=== PATIENT | male | born 1965 | race Caucasian/White ===

== ENCOUNTER 2020-02-13 17:18 | Inpatient (IN) | payer OTHER, SELFPAY ==
[2020-02-13] VITALS (9 sets, daily range): BP systolic 93–111; BP diastolic 59–68; PULSE 89–105; RESP 13–26; TEMP 37.1–38.9; O2SAT 95–98; BMI 22.5
--- NOTE | 2020-02-13 20:24 | W.ED.GENADLT ---
HPI - General Adult General: Chief complaint: General Medical Stated complaint: Needing Fluids/Came from Cancer Center Time Seen by Provider: 02/13/20 19:56 Source: patient Mode of arrival: ambulatory Limitations: no limitations History of Present Illness: HPI narrative: 54-year-old male who states he has throat cancer and has been receiving radiation chemotherapy at cancer [facility] [place]. He states that after every treatment he was having to receive IV fluids. He states he was discharged a week ago and has been having generalized weakness and called him informed him they wanted him to come to a emergency room to get IV fluids along with had labs checked. Patient denies any fever. Denies any pain. He states he feels like he just needs some IV fluids as he is weak. Associated symptoms: Deny chest pain, dyspnea, nausea, rash or vomiting Review of Systems Const: Denies: fever(s), chills, body aches or change in appetite Eyes: Denies: blurry vision or eye discomfort ENMT: Denies: throat pain or dental pain Card: Denies: chest pain Resp: Denies: dyspnea GI: Denies: abdominal pain, nausea, vomiting or diarrhea : Denies: dysuria Musc: Denies: neck pain or back pain Skin/Breast: Denies: rash Neuro: Reports: weakness in extremities Psych: Denies: depression Gen/Lymph: Denies: easy bruising All/Imm: Denies: urticaria Physical Exam Const: COMMON NORMALS: no acute distress, patient oriented x3 and healthy appearing HENMT: COMMON NORMALS: normocephalic and atraumatic HEAD & SCALP: normocephalic and atraumatic Eye: COMMON NORMALS: Equal, round and reactive pupils present and EOMs intact bilaterally PUPIL: Yes Equal, round and reactive pupils present Neck/C-Spine: COMMON NORMALS: full ROM and supple Chest: COMMONS NORMALS: normal inspection of the chest and normal palpation of entire chest wall Resp: COMMON NORMALS: normal respiratory effort, No retractions, No use of accessory muscles and clear to auscultation bilaterally AUSCULTATION: clear to auscultation bilaterally Cardio: COMMON NORMALS: regular rate, regular rhythm and No murmurs present (Cardio) RATE: regular rate RHYTHM: regular rhythm GI: COMMON NORMALS: Normal to inspection, nondistended, normoactive bowel sounds present, Soft to palpation, non-tender and no masses PALPATION: Yes Soft to palpation Extremity: COMMON NORMALS: normal to inspection and full ROM Neuro: COMMON NORMALS: patient oriented x3, moves all extremities and no focal motor deficits Psych: COMMON NORMALS: mental status grossly normal, Normal thought process present and cooperative THOUGHT PROCESS: Normal thought process present Skin: COMMON NORMALS: no rashes or lesions noted and no wounds GENERAL SKIN EXAM: no rashes or lesions noted Course Vital Signs: Vital signs: Vital Signs Temperature 98.8 F 02/13/20 17:43 Pulse Rate 96 02/13/20 21:00 Respiratory Rate 16 02/13/20 21:00 Blood Pressure 101/62 02/13/20 21:00 Pulse Oximetry 95 02/13/20 21:00 MDM - General Adult MDM Narrative: Medical decision making narrative: Patient presents here with generalized weakness and is found to be anemic. Patient transfused in the ER. His vital signs here been stable. Spoke to hospitalist will admit for observation to trend her hemoglobin. Lab Data: Labs: Lab Results 02/13/20 02/13/20 Range/Units 20:40 20:40 WBC 1.6 L (4.0-10.0) 10^3/ uL RBC 2.28 L (4.1-5.3) 10^6/u L Hgb 6.9 L (11.7-16.6) g/dL Hct 20.1 L* (42.0-52.0) % MCV 88.2 (80-94) fL MCH 30.3 (28.0-34.0) pg MCHC 34.3 (30.0-36.0) g/dL RDW 13.2 (12.1-15.1) % Plt Count 57 L (130-400) 10^3/c mm MPV 8.9 (7.4-10.4) fL Neut % (Auto) 59.0 % Lymph % (Auto) 24.4 % [place] % (Auto) 16.0 % Eos % (Auto) 0.0 % Baso % (Auto) 0.6 % Neut # (Auto) 0.92 L* (1.8-7.7) 10^3/u L Lymph # (Auto) 0.4 L (0.8-4.8) 10^3/u L [place] # (Auto) 0.3 (0.2-0.9) 10^3/u L Eos # (Auto) 0.0 (0.0-0.8) 10^3/u L Baso # (Auto) 0.0 (0.0-0.1) 10^3/u L Nucleated RBC % (a uto) 0 % Nucleated RBCs # 0.0 /100WBC Potassium 4.0 (3.5-5.1) mmol/L Anion Gap 15.0 (5-19) Glucose 107 (65-115) mg/dL Calcium 8.7 (8.5-10.5) mg/dL Phosphorus 3.5 (2.5-4.5) mg/dL Total Bilirubin 0.8 (0.15-1.2) mg/dL AST 15 (0-40) U/L ALT 18 (0-41) U/L Alkaline Phosphata se 73 (40-130) IU/L Lactate Dehydrogen ase 182 (135-225) U/L Total Protein 6.7 (6.6-8.7) g/dL Albumin 3.8 (3.5-5.2) g/dL Globulin 2.9 (1.3-4.6) g/dL Discharge Plan Discharge Patient Disposition: Admitted As Inpatient Clinical Impression: Anemia Qualifiers: Anemia type: unspecified type Qualified Code(s): D64.9 - Anemia, unspecified Condition: Stable Coding Level of Care 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
[2020-02-13 20:50] LABS: Basophils % 0.6 %; Hemoglobin 6.9 g/dL (11.7-16.6); Lymphocytes # 0.4 10^3/uL (0.8-4.8); Lymphocytes % 24.4 %; Mean Corpuscular HGB Conc 34.3 g/dL (30.0-36.0); Mean Corpuscular Hemoglobin 30.3 pg (28.0-34.0); Mean Corpuscular Volume 88.2 fL (80-94); Mean Platelet Volume 8.9 fL (7.4-10.4); Monocytes # 0.3 10^3/uL (0.2-0.9); Nucleated Red Blood Cells % 0 %; Platelet Count 57 10^3/cmm (130-400); Red Blood Count 2.28 10^6/uL (4.1-5.3); Red Cell Distribution Width 13.2 % (12.1-15.1); White Blood Count 1.6 10^3/uL (4.0-10.0)
[2020-02-13 20:53] LABS: Hematocrit 20.1 % (42.0-52.0); Neutrophils # 0.92 10^3/uL (1.8-7.7)
[2020-02-13 21:13] LABS: Alanine Aminotransferase 18 U/L (0-41); Albumin Level 3.8 g/dL (3.5-5.2); Alkaline Phosphatase 73 IU/L (40-130); Aspartate Amino Transferase 15 U/L (0-40); Blood Urea Nitrogen 24 mg/dL (6-20); Calcium 8.7 mg/dL (8.5-10.5); Carbon Dioxide 33 mmol/L (22-29); Chloride 89 mmol/L (98-107); Globulin 2.9 g/dL (1.3-4.6); Glomerular Filtration Rate 42.1 mL/min (90-130); Glucose 107 mg/dL (65-115); Lactate Dehydrogenase 182 U/L (135-225); Magnesium 1.5 mg/dL (1.7-2.3); Osmolality Calculated 281 mOsm/kg (285-295); Phosphorus 3.5 mg/dL (2.5-4.5); Sodium 133 mmol/L (136-145); Total Bilirubin 0.8 mg/dL (0.15-1.2); Total Protein 6.7 g/dL (6.6-8.7)
[2020-02-13] MEDS: sodium chloride 0.9% 1,000 ML 999 ML IV (21:21)
--- NOTE | 2020-02-13 21:59 | P.HP_ITS ---
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 Patient has had 33 cycles of radiotherapy, 3 cycles of chemotherapy, his last cycle was on 02/03. Patient is stating that today he was feeling extremely weak and had 1 presyncopal event in the bathroom, he had no energy to get up on his own, he did not notice any fever, cough, chest pain, abdominal pain, lower extremity pain. He has been noticing streaks of blood on the napkin whenever he sleeps. No profuse bleeding noticed, no black tarry stool. Labs on 02/03 revealed hemoglobin 9. He gets his chemoradiotherapy at cancer Center [facility]. Diagnosis in the ER revealed hemoglobin 6.9, no active bleeding, he was prescribed 2 units of PRBC, record review, before we started blood. 5 fever 102, tachycardic, became septic, he is neutropenic, I have started him on vancomycin and cefepime, put blood transfusion on hold, requested blood culture, urine culture, CT chest Review of Systems Const: Reports: chills, body aches, change in appetite, fatigue and malaise; Denies: fever(s) Eyes: Denies: change in vision ENMT: Reports: throat pain, enlarged tonsils, mouth pain, oral sores and dry mouth Card: Denies: chest pain Resp: Denies: dyspnea GI: Denies: abdominal pain : Denies: flank pain Musc: Denies: neck pain Skin/Breast: Denies: rash Neuro: Denies: headache(s) Psych: Denies: anxiety Endo: Denies: polyuria Gen/Lymph: Denies: easy bruising All/Imm: Denies: urticaria Medications/Allergies Home Medications Medication Instructions Recorded Confirmed Last Taken Type Restoril See Rx Instructions .ROUTE .COMPLEX 02/13/20 02/14/20 02/02/20 History Stomatitis Cocktail See Rx Instructions .ROUTE .COMPLEX 02/13/20 02/14/20 02/13/20 08:00 History escitalopram oxalate [Lexapro] See Rx Instructions .ROUTE .COMPLEX 02/13/20 02/13/20 02/13/20 12:00 History gabapentin See Rx Instructions .ROUTE .COMPLEX 02/13/20 02/13/20 02/13/20 12:00 History guaifenesin See Rx Instructions .ROUTE .COMPLEX 02/13/20 02/13/20 02/13/20 12:00 History hydrocodone-acetaminophen [Weatherly] See Rx Instructions .ROUTE .COMPLEX 02/13/20 02/13/20 02/11/20 12:00 History hydromorphone [Dilaudid] See Rx Instructions .ROUTE .COMPLEX 02/13/20 02/13/20 02/13/20 12:00 History ibuprofen 800 mg PO TID 02/13/20 02/13/20 02/13/20 08:00 History lidocaine HCl [Lidocaine Viscous] See Rx Instructions .ROUTE .COMPLEX 02/13/20 02/13/20 Unknown History nutritional supplements [Osmolite See Rx Instructions .ROUTE .COMPLEX 02/13/20 02/13/20 02/13/20 16:00 History 1.5 Karthik] omeprazole See Rx Instructions .ROUTE .COMPLEX 02/13/20 02/14/20 02/13/20 08:00 History ondansetron HCl [Zofran] See Rx Instructions .ROUTE .COMPLEX 02/13/20 02/14/20 02/13/20 08:00 History polyethylene glycol 3350 [Miralax] 17 g PO DAILY 02/13/20 02/14/20 02/13/20 08:00 History prochlorperazine maleate See Rx Instructions .ROUTE .COMPLEX 02/13/20 02/14/20 02/13/20 08:00 History silver sulfadiazine See Rx Instructions .ROUTE .COMPLEX 02/13/20 02/14/20 02/13/20 08:00 History triamcinolone acetonide See Rx Instructions .ROUTE .COMPLEX 02/13/20 02/13/20 Unknown History Allergies Allergy/AdvReac Type Severity Reaction Status Date / Time No Known Allergies Allergy Verified 02/13/20 22:04 PFSH Acute PFSH: Medical History (Updated 02/14/20 @ 01:07 by David Deng MD) Right tonsillar squamous cell carcinoma Surgical History (Updated 02/14/20 @ 00:59 by David Deng MD) H/O inguinal hernia repair History of knee surgery History of surgery inguinal hernia repair Family History (Updated 02/14/20 @ 00:59 by David Deng MD) Other No pertinent family history Social History (Updated 02/14/20 @ 01:00 by David Deng MD) Quit status (tobacco): has quit using tobacco Former quit date comment: Used to chew tobacco Alcohol intake: never Substance/Drug Use: never Household members: significant other Housing: House 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 Vitals/I&O/Wt Last Vital Signs Temp 98.8 F 02/13/20 17:43 Pulse 96 02/13/20 21:00 Resp 16 02/13/20 21:00 BP 101/62 02/13/20 21:00 Pulse Ox 95 02/13/20 21:00 Weight last 48 hrs Weight 75.296 kg Physical Exam Narrative: EXAM NARRATIVE: Middle-age male currently lying comfortable in his bed No active respiratory distress No active chest pain Appears more than stated age Clinically dehydrated S1, S2 sinus tachycardia Abdomen soft nontender bowel sounds present, PEG tube site without any active drainage, Neurologically nonfocal exam EOMI, PERRLA, I do not appreciate any large masses in oropharynx, however some active bleeding noted from the right tonsillar fossa GCS 15 Appropriate mood and affect Low extremity no edema gangrene ulcer No signs of meningitis Data : 02/13/20 20:40 02/13/20 20:40 A&P Assessment and plan (1) Sepsis: Status: Acute (2) Neutropenia: Status: Acute (3) Right tonsillar squamous cell carcinoma: Status: Acute (4) Anemia: Status: Acute Qualifiers: Anemia type: unspecified type Qualified Code(s): D64.9 - Anemia, unspecified (5) Pancytopenia: Status: Acute (6) AMOS (acute kidney injury): Status: Acute Additional A&P Information Sepsis with moderate neutropenia Patient spiked fever, he is tachycardic, neutropenic I will obtain blood culture, urine culture, will obtain CT chest Start him on vancomycin and cefepime Infectious versus noninfectious source of fever, no signs of meningitis, he is awake alert oriented x3, GCS 15 PEG tube site unremarkable I would request Covid 19 antigen test Acute on chronic normocytic anemia Bone marrow suppression from the chemotherapeutic agent would explain pancytopenia Patient is stating blood from his right tonsillar mass but it is not profuse to the point which is hemoglobin from 9-6 in 2 weeks His last hemoglobin was 9 , 2 weeks ago, This most likely is bone marrow suppression due to chemotherapeutic agent Check iron panel Blood transfusion on hold AMOS No previous creatinine to compare his baseline creatinine Clinically looks dehydrated Monitor urine output, No signs of UTI Hold nephrotoxic agents, especially ibuprofen and gabapentin Full code PEG tube feeding DVT prophylaxis SCDs, avoid anticoagulation in setting of anemia Attestations Medical Necessity Statement*: Anticipating stay in the hospital course more than 2 midnights continue IV antibiotics for sepsis and leukopenia, need blood transfusion as well which is on hold due to febrile episode Time Spent in Patient Care: (>than 50% of time spent in counselling and/or direct pt care on unit) . 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
--- NOTE | 2020-02-13 23:15 | PC.NURSE ---
Was about to go get blood products to start when patient was assigned a room number. Called report to CSU, nurse stated she would start the blood when he got to the floor.
[2020-02-14] VITALS (29 sets, daily range): BP systolic 88–118; BP diastolic 51–75; PULSE 83–120; RESP 15–33; TEMP 36.2–38.8; O2SAT 92–98
--- NOTE | 2020-02-14 00:01 | PC.PHAR ---
Vancomycin is dosed at 1500mg IVPB every 24 hours to produce a predicted trough level of 13.53 (population based pharmacokinetic analysis). A trough level has been ordered from the lab to be obtained before the fourth dose to confirm and adjust if needed.
--- NOTE | 2020-02-14 00:53 | PC.NURSE ---
Addendum entered by Angelica Quintana RN 02/14/20 00:57: Ordered to wait and given Dexamethasone and Benadryl that is ordered right before transfusion. Original Note: Verified with Dr. Deng not to start blood until fever is resolved.
--- NOTE | 2020-02-14 01:13 | CTR_ITS ---
PROCEDURE INFORMATION: Exam: CT Chest Without Contrast Exam date and time: 02/14/2020 2:12 AM Age: 54 years old Clinical indication: Condition or disease; Other: Sepsis neutropenia; Primary cancer: RT tonsillar squamous cell carcinoma; Prior surgery; Surgery type: Peg tube TECHNIQUE: Imaging protocol: Computed tomography of the chest without contrast. Radiation optimization: All CT scans at this facility use at least one of these dose optimization techniques: automated exposure control; mA and/or kV adjustment per patient size (includes targeted exams where dose is matched to clinical indication); or iterative reconstruction. COMPARISON: No relevant prior studies available. RADIATION DOSE METRICS: Total DLP (mGy-cm): 1280.68 FINDINGS: Lungs: Unremarkable. No consolidation. No masses. Pleural space: Unremarkable. No pneumothorax. No pleural effusion. Heart: Unremarkable. No cardiomegaly. No pericardial effusion. Aorta: Unremarkable. No aortic aneurysm. Lymph nodes: Unremarkable. No enlarged lymph nodes. Bones/joints: Unremarkable. No acute fracture. Soft tissues: Unremarkable. IMPRESSION: No acute findings. PROCEDURE INFORMATION: Exam: CT Abdomen And Pelvis Without Contrast Exam date and time: 02/14/2020 2:12 AM Age: 54 years old Clinical indication: Condition or disease; Other: Sepsis neutropenia; Primary cancer: RT tonsillar squamous cell carcinoma; Prior surgery; Surgery type: Peg tube TECHNIQUE: Imaging protocol: Computed tomography of the abdomen and pelvis without contrast. Radiation optimization: All CT scans at this facility use at least one of these dose optimization techniques: automated exposure control; mA and/or kV adjustment per patient size (includes targeted exams where dose is matched to clinical indication); or iterative reconstruction. COMPARISON: No relevant prior studies available. RADIATION DOSE METRICS: Total DLP (mGy-cm): 1280.68 FINDINGS: Tubes, catheters and devices: A percutaneous gastrostomy tube is present with the balloon in the mid stomach. Liver: Normal. No mass. Gallbladder and bile ducts: Normal. No calcified stones. No ductal dilation. Pancreas: Normal. No ductal dilation. Spleen: Normal. No splenomegaly. Adrenal glands: Normal. No mass. Kidneys and ureters: Tiny 7 mm cyst is seen on the posterior aspect of the left kidney compatible with a simple cyst. Stomach and bowel: Unremarkable. No obstruction. No mucosal thickening. Appendix: The appendix is visualized and is normal in configuration. Intraperitoneal space: Unremarkable. No free air. No significant fluid collection. Vasculature: Unremarkable. No abdominal aortic aneurysm. Lymph nodes: Unremarkable. No enlarged lymph nodes. Urinary bladder: Unremarkable as visualized. Reproductive: Unremarkable as visualized. Bones/joints: Unremarkable. No acute fracture. Soft tissues: Unremarkable. CT/CT chest abd pel wo con IMPRESSION: 1. Percutaneous gastrostomy tube with balloon in mid stomach 2. Simple 7 mm left renal cyst. No further workup needed. COMMENTS: Consistent with the [place]'s Incidental Findings Committee white paper (J Am Francesca Radiol 2018): Any incidental renal lesion less than 1 cm or classified as too small to characterize, or any incidental cystic renal lesion characterized as simple-appearing, is likely benign. No follow-up imaging is recommended for these lesions per consensus recommendations based on imaging criteria. Radiation Dose CTDIVOL = (mGy): DLP = 1280.68~1280.68 (mGy-cm)
[2020-02-14 01:21] LABS: Lactic Sepsis W/Reflex 0.8 mmol/L (0.5-2.2)
[2020-02-14 01:31] LABS: SARS Covid-2 Antigen Negative (Negative)
[2020-02-14] MEDS: cefepime 1,000 MG in sodium chloride 0.9% (plus) 50 ML 100 MG IV ×3 (01:47→23:53)
[2020-02-14] MEDS: ondansetron 2 mg/ML SDV 2 mL 4 MG IVP ×2 (02:35→17:20)
[2020-02-14 03:01] LABS: Iron 76 ug/dL (59-158); Percent Saturation 42.4 % (20-50); Total Iron Binding Capacity 179 mcg/dl; Unsaturated Iron Binding 103 ug/dL (112-347)
[2020-02-14 03:07] LABS: Procalcitonin 0.27 ng/mL (0-0.5)
[2020-02-14 03:15] LABS: Iron 72 ug/dL (59-158); Vitamin B12 719 pg/mL (232-1245)
[2020-02-14 03:30] LABS: Ferritin 1482 ng/mL (30-400)
--- NOTE | 2020-02-14 03:55 | PC.NURSE ---
NURSING NOTE: ADMISSION: PT ARRIVED TO UNIT AT APPROXIMATELY 2345 THIS SHIFT. ALERT AND ORIENTED X4, MOVES ALL EXTREMITIES AND FOLLOWS ALL COMMANDS. PT'S TEMP ON ARRIVAL TO THE FLOOR = 102.1. PLACED CALL TO DR. BUCK AND RECEIVED ORDERS TO HOLD BLOOD TRANSFUSION UNTIL TEMP RESOLVED; TYLENOL PRN TEMP AND ORDERS FOR PRETRANSFUSION MEDICATIONS. ALL VS AND ASSESSMENTS ORDERED. AT APPROXIMATELY 0200, PT C/O NAUSEA AND VOMITNING/HAD EMESIS X3. ZOFRAN GIVEN ORDERED. NO DISTRESS NOTED AT THIS TIME. WILL CONTINUE TO MONITOR.
--- NOTE | 2020-02-14 05:36 | PC.NURSE ---
NURSING NOTE: SHIFT SUMMARY: PT TEMP AT THIS TIME 98.2. PLACED CALL TO DR. BUCK FOR OK TO TRANSFUSE BLOOD. RECEIVED ORDER TO GO AHEAD AND TRANSFUSE AT THIS TIME. PT RESTING QUIETLY. NO MORE NAUSEA AND VOMITING. ALL VS AND ASSESSMENTS CHARTED. NO DISTRESS NOTED.
[2020-02-14 06:13] LABS: Basophils % 0.9 %; Lymphocytes # 0.3 10^3/uL (0.8-4.8); Mean Corpuscular HGB Conc 34.1 g/dL (30.0-36.0); Mean Corpuscular Hemoglobin 30.2 pg (28.0-34.0); Mean Corpuscular Volume 88.5 fL (80-94); Monocytes # 0.2 10^3/uL (0.2-0.9); Neutrophils % 58.4 %; Nucleated Red Blood Cells % 0 %; Platelet Count 59 10^3/cmm (130-400); Red Blood Count 1.92 10^6/uL (4.1-5.3); Red Cell Distribution Width 13.2 % (12.1-15.1); White Blood Count 1.1 10^3/uL (4.0-10.0)
[2020-02-14 09:47] LABS: Hemoglobin 5.8 g/dL (11.7-16.6); Neutrophils # 0.66 10^3/uL (1.8-7.7)
[2020-02-14 09:48] LABS: Slide Review Slide Review Perform
--- NOTE | 2020-02-14 15:01 | P.PN_ITS ---
Subjective Subjective: Interval history: History and physical reviewed. Patient reports he feels a little bit better than on admission. He denies any cough, vomiting, diarrhea. Medications: Reviewed: Yes Vitals/I&O/Wt Last Vital Signs Temp 100.1 F H 02/14/20 12:00 Pulse 96 02/14/20 12:00 Resp 16 02/14/20 12:00 BP 114/65 02/14/20 12:00 Pulse Ox 96 02/14/20 12:00 02/14/20 02/14/20 02/14/20 06:59 14:59 22:59 Intake Total 50 / 1050 Output Total 400 / 400 280 / 280 Balance -350 / 650 -280 / -280 Weight last 48 hrs Weight 75.296 kg Physical Exam Narrative: EXAM NARRATIVE: General exams no apparent distress Cardiovascular regular rate and rhythm, no murmur Lungs clear no wheezing or crackles Abdomen is soft nontender with positive bowel sounds Extremities no cyanosis clubbing or edema Skin no rash Data : 02/14/20 05:55 02/13/20 20:40 Micro: Microbiology 02/13/20 05:55 Blood Culture - Preliminary Blood SPECIMEN COLLECTED 02/13/20 05:55 Blood Culture - Preliminary Blood SPECIMEN COLLECTED A&P Assessment and plan (1) Neutropenia: ANC 660 this morning. White blood cell count 1.1. Closely monitor counts Status: Acute (2) Sepsis: IV antibiotics consisting of cefepime and vancomycin. Continued hydration Chest abdomen and pelvis CT demonstrated no infiltrate in the lungs. Rapid Covid negative Status: Acute (3) Pancytopenia: Most recent chemotherapy and radiation 3 weeks ago 1 unit packed red blood cells transfused for hemoglobin of 5.8. Repeat CBC tomorrow. Status: Acute (4) AMOS (acute kidney injury): Recheck creatinine in the morning. 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
[2020-02-14] MEDS: famotidine 20 mg Tablet PEG-TUBE (16:42)
[2020-02-14] MEDS: HYDROcodone-acetaminophen 7.5-325 mg Tablet 1 TAB PEG-TUBE ×2 (17:26→21:35)
[2020-02-14] MEDS: gabapentin 300 mg Capsule 600 MG PO (21:35)
--- NOTE | 2020-02-14 21:58 | PC.NURSE ---
Patient stated he took 10mg of lexapro not 1mg. On his home medication list it is listed as 10mg PEG tube. I offered to call the doctor and fix this patient said no and just to have it fixed tomorrow. Medication not given as requested.
[2020-02-15 04:00] VITALS: BP 125/68; PULSE 110; RESP 18; TEMP 38.2; O2SAT 94
[2020-02-15] MEDS: acetaminophen 325 mg Tablet PO (04:24)
[2020-02-15] MEDS: gabapentin 300 mg Capsule PEG-TUBE ×2 (04:24→12:20)
--- NOTE | 2020-02-15 04:39 | PC.NURSE ---
Patient requested all his medications be given together with his Tylenol.
[2020-02-15 04:55] LABS: Basophils % 2.4 %; Hematocrit 22.6 % (42.0-52.0); Hemoglobin 7.6 g/dL (11.7-16.6); Lymphocytes # 0.2 10^3/uL (0.8-4.8); Mean Corpuscular HGB Conc 33.6 g/dL (30.0-36.0); Mean Corpuscular Hemoglobin 28.7 pg (28.0-34.0); Mean Corpuscular Volume 85.3 fL (80-94); Mean Platelet Volume 8.7 fL (7.4-10.4); Monocytes # 0.2 10^3/uL (0.2-0.9); Monocytes % 19.5 %; Neutrophils % 56.1 %; Nucleated Red Blood Cells % 0 %; Platelet Count 60 10^3/cmm (130-400); Red Blood Count 2.65 10^6/uL (4.1-5.3); Red Cell Distribution Width 14.9 % (12.1-15.1)
[2020-02-15 05:15] LABS: Neutrophils # 0.46 10^3/uL (1.8-7.7); White Blood Count 0.8 10^3/uL (4.0-10.0)
[2020-02-15 05:51] LABS: Alanine Aminotransferase 19 U/L (0-41); Albumin Level 3.8 g/dL (3.5-5.2); Alkaline Phosphatase 76 IU/L (40-130); Anion Gap 15.2 (5-19); Aspartate Amino Transferase 16 U/L (0-40); Blood Urea Nitrogen 24 mg/dL (6-20); Calcium 8.7 mg/dL (8.5-10.5); Carbon Dioxide 31 mmol/L (22-29); Chloride 94 mmol/L (98-107); Globulin 2.8 g/dL (1.3-4.6); Glomerular Filtration Rate 69.5 mL/min (90-130); Glucose 125 mg/dL (65-115); Magnesium 1.6 mg/dL (1.7-2.3); Osmolality Calculated 290 mOsm/kg (285-295); Potassium 3.2 mmol/L (3.5-5.1); Sodium 137 mmol/L (136-145); Total Protein 6.6 g/dL (6.6-8.7)
--- NOTE | 2020-02-15 05:54 | PC.NURSE ---
Called Dr. Deng with critical labs and updated him that patient was not on any precautions. awaiting orders at this time.
[2020-02-15 08:00] VITALS: BP 125/68; PULSE 82; RESP 27
--- NOTE | 2020-02-15 09:12 | P.PN_ITS ---
Subjective Subjective: Interval history: Patient finally was able to sleep throughout the night. He was difficult to arouse this morning and appeared somewhat confused initially but quickly got oriented. 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 Reports that he is not but does have girlfriend Maylin. Reports that he has 3 daughters and they are from [place]. Reports that he completed his radiation and 3 rounds of chemotherapy. Reports that after each round of chemotherapy he would get sick and be hospitalized in [facility]. Reports that this time he decided to come home and not wait until his post chemo sickness happens. This morning patient denies any shortness of breath or chest pain. Denies any abdominal pain. Denies headache. Reports that he has chronic large amount of dark brownish, thick phlegm production especially in the morning ever since he started having radiation therapy to his neck. Reports that his neck feels hot but otherwise he denies any pain and his temperature is 100.7 this morning. He is not sure when was his last bowel movement. Reports that he frequently has trouble initiating urination but otherwise denies any burning on urination. White blood cell count continues to decline. Platelets appear stable. Hemoglobin responded to blood transfusion. I also would like to mention that when patient's RN Tova walked into the room he immediately recalled her name. Medications: Reviewed: Yes Vitals/I&O/Wt Last Vital Signs Temp 100.7 F H 02/15/20 04:00 Pulse 110 H 02/15/20 04:00 Resp 18 02/15/20 04:00 BP 125/68 02/15/20 04:00 Pulse Ox 94 02/15/20 04:00 02/14/20 02/15/20 02/15/20 22:59 06:59 14:59 Intake Total 1720 / 2245 840 / 3085 Output Total 440 / 1120 675 / 1795 Balance 1280 / 1125 165 / 1290 Weight last 48 hrs Weight 75.296 kg Physical Exam Const: COMMON NORMALS: no acute distress and patient oriented x3 Resp: COMMON NORMALS: normal respiratory effort and clear to auscultation bilaterally AUSCULTATION: clear to auscultation bilaterally Cardio: COMMON NORMALS: regular rate, regular rhythm and S2 normal heart sound present RATE: regular rate RHYTHM: regular rhythm HEART SOUNDS: S2 normal heart sound present OTHER: No lower extremity edema GI: COMMON NORMALS: Normal to inspection, nondistended, normoactive bowel sounds present, Soft to palpation and non-tender PALPATION: Yes Soft to palpation OTHER: PEG tube insertion site is clean Neuro: COMMON NORMALS: patient oriented x3 and no focal motor deficits Skin: OTHER: Mostly right side of the neck has erythema and post radiation changes Data : 02/15/20 04:00 02/15/20 04:00 Micro: Microbiology 02/13/20 05:55 Blood Culture - Preliminary Blood NEGATIVE TO DATE 02/13/20 05:55 Blood Culture - Preliminary Blood NEGATIVE TO DATE A&P Assessment and plan (1) Neutropenia: With neutropenic fever. Post chemotherapy last week Monday. Status: Acute (2) Sepsis: IV antibiotics consisting of cefepime and vancomycin. Continued hydration Chest abdomen and pelvis CT demonstrated no infiltrate in the lungs. Rapid Covid negative Status: Acute (3) Pancytopenia: Most recent chemotherapy and radiation patient reports being last week Monday 1 unit packed red blood cells transfused for hemoglobin of 5.8. Repeat CBC tomorrow. Status: Acute (4) AMOS (acute kidney injury): Resolved. 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 Status: Acute Additional A&P Information Sepsis with neutropenic fever. Acute on chronic normocytic anemia Bone marrow suppression from the chemotherapeutic agent would explain pancytopenia Patient is stating blood from his right tonsillar mass but it is not profuse to the point which is hemoglobin from 9-6 in 2 weeks AMOS, prerenal. Postrenal component cannot be ruled out at this point Hypomagnesemia, present on admission Hypokalemia. Full code PEG tube feeding DVT prophylaxis SCDs, avoid anticoagulation in setting of anemia PLAN: Obtain urine for analysis and culture. Will bladder scan to to check for possible obstruction. Continue current antibiotics and monitor. Awaiting culture results. Request physical therapy. 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
[2020-02-15] MEDS: potassium chloride ER 10 mEq Tablet 40 MEQ PO (09:43)
[2020-02-15] MEDS: famotidine 20 mg Tablet PEG-TUBE ×2 (09:43→18:53)
[2020-02-15] MEDS: magnesium sulfate premix 2 GM/50 ML PIGGYBACK IV (09:44)
[2020-02-15 09:55] VITALS: BP 99/68; PULSE 75; RESP 18
--- NOTE | 2020-02-15 11:30 | PC.NURSE ---
Bladder scan showed 589 fluid in bladder. Patient voided 560 within 30 minutes of scanning
[2020-02-15] MEDS: cefepime 1,000 MG in sodium chloride 0.9% (plus) 50 ML 100 MG IV (12:20)
[2020-02-15 13:00] VITALS: PULSE 85; RESP 20
--- NOTE | 2020-02-15 13:39 | PC.NURSE ---
Report had off to CINDY Bond.
[2020-02-15] MEDS: HYDROcodone-acetaminophen 7.5-325 mg Tablet 1 TAB PEG-TUBE ×3 (13:42→23:03)
[2020-02-15 15:39] LABS: Add Urine Microscopic? NO
[2020-02-15 16:21] LABS: Bilirubin Urine Neg (Negative); Blood Urine Neg (Negative); Glucose Urine UA Norm (Normal); Ketones Urine Negative (Negative); Leukocyte Esterase Urine Negative (Negative); Nitrate Urine Negative (Negative); Protein Urine Neg (Negative); Specific Gravity, Urine 1.005 (1.005-1.030); Urine Appearance Clear (CLEAR); Urine Color Yellow (Yellow); Urobilinogen Urine 4 mg/dL (Negative); pH Urine 7 (5-7)
[2020-02-15 17:00] VITALS: BP 104/64; PULSE 93; RESP 19; TEMP 37.7; O2SAT 96
[2020-02-15 20:56] VITALS: BP 106/62; PULSE 88; RESP 19; TEMP 36.9; O2SAT 96
[2020-02-15] MEDS: gabapentin 300 mg Capsule 600 MG PO (20:59)
[2020-02-16] VITALS (14 sets, daily range): BP systolic 91–138; BP diastolic 59–88; PULSE 79–106; RESP 11–20; TEMP 36.5–37.3; O2SAT 93–98
[2020-02-16] MEDS: cefepime 1,000 MG in sodium chloride 0.9% (plus) 50 ML 100 MG IV ×3 (00:10→23:54)
[2020-02-16 01:15] LABS: Vancomycin Trough 11.2 ug/mL (10-15)
[2020-02-16] MEDS: gabapentin 300 mg Capsule PEG-TUBE ×2 (05:30→11:11)
[2020-02-16] MEDS: HYDROcodone-acetaminophen 7.5-325 mg Tablet 1 TAB PEG-TUBE ×3 (05:34→18:23)
--- NOTE | 2020-02-16 08:08 | PM.PN ---
Subjective Subjective: Interval history: Patient reports feeling better this morning. Denies shortness of breath or chest pain. Denies abdominal pain. His tube feeds are at goal. Reports that he is still feels dry. Awaiting morning labs. Fever appears to be improving and T-max since yesterday was 99.9. Continues to have phlegm production. Medications: Reviewed: Yes Vitals/I&O/Wt Last Vital Signs Temp 98.6 F 02/16/20 00:05 Pulse 84 02/16/20 00:05 Resp 14 02/16/20 00:05 BP 105/63 02/16/20 00:05 Pulse Ox 94 02/16/20 00:05 02/15/20 02/16/20 02/16/20 22:59 06:59 14:59 Intake Total 760 / 940 140 / 1080 Output Total 220 / 800 150 / 950 Balance 540 / 140 -10 / 130 Physical Exam Const: COMMON NORMALS: no acute distress and patient oriented x3 Resp: COMMON NORMALS: normal respiratory effort and clear to auscultation bilaterally AUSCULTATION: clear to auscultation bilaterally Cardio: COMMON NORMALS: regular rate, regular rhythm and S2 normal heart sound present RATE: regular rate RHYTHM: regular rhythm HEART SOUNDS: S2 normal heart sound present OTHER: No lower extremity edema GI: COMMON NORMALS: Normal to inspection, nondistended, normoactive bowel sounds present, Soft to palpation and non-tender PALPATION: Yes Soft to palpation OTHER: PEG tube insertion site is clean Neuro: COMMON NORMALS: patient oriented x3 and no focal motor deficits Skin: OTHER: Mostly right side of the neck has erythema and post radiation changes Data : 02/15/20 04:00 02/15/20 04:00 Micro: Microbiology 02/15/20 13:30 Gram Stain - Final Sputum - Expectorated Sputum 02/13/20 05:45 Urine Culture - Preliminary Urine,Clean Catch 02/13/20 05:55 Blood Culture - Preliminary Blood NEGATIVE TO DATE 02/13/20 05:55 Blood Culture - Preliminary Blood NEGATIVE TO DATE A&P Assessment and plan (1) Neutropenia: With neutropenic fever. Post chemotherapy last week Monday. Status: Acute (2) Sepsis: IV antibiotics consisting of cefepime and vancomycin. Continued hydration Chest abdomen and pelvis CT demonstrated no infiltrate in the lungs. Rapid Covid negative Status: Acute (3) Pancytopenia: Most recent chemotherapy and radiation patient reports being last week Karan 1 unit packed red blood cells transfused for hemoglobin of 5.8. Repeat CBC tomorrow. Status: Acute (4) AMOS (acute kidney injury): Resolved. 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 Status: Acute Additional A&P Information Sepsis with neutropenic fever. Acute on chronic normocytic anemia Bone marrow suppression from the chemotherapeutic agent would explain pancytopenia Patient is stating blood from his right tonsillar mass but it is not profuse to the point which is hemoglobin from 9-6 in 2 weeks AMOS, prerenal. Postrenal component cannot be ruled out at this point Hypomagnesemia, present on admission Hypokalemia. Full code PEG tube feeding DVT prophylaxis SCDs, avoid anticoagulation in setting of anemia PLAN: Awaiting for morning labs. Will start patient on LR at 75 mill per hour and continue tube feeds. Continue current antibiotics. Clinically patient appears to be improving. Attestations Medical Necessity Statement*: Patient with neutropenic fever requires close inpatient monitoring and treatment until deemed safe for discharge. Time Spent in Patient Care: 16 - 35 minutes Coding Level of Care Code Acute Manager Of [employer] for g Fwd Diagnoses Neutropenia D70.9 Sepsis A41.9 Pancytopenia D61.818 AMOS (acute kidney injury) N17.9 Right tonsillar squamous cell carcinoma C09.9
[2020-02-16] MEDS: lactated ringers 1,000 ML 75 ML IV (09:24)
[2020-02-16] MEDS: famotidine 20 mg Tablet PEG-TUBE ×2 (09:24→18:22)
[2020-02-16 09:49] LABS: Basophils % 0.7 %; Eosinophils % 0.7 %; Hemoglobin 6.6 g/dL (11.7-16.6); Lymphocytes # 0.5 10^3/uL (0.8-4.8); Lymphocytes % 34.5 %; Mean Corpuscular HGB Conc 34.2 g/dL (30.0-36.0); Mean Corpuscular Hemoglobin 29.5 pg (28.0-34.0); Mean Corpuscular Volume 86.2 fL (80-94); Mean Platelet Volume 8.4 fL (7.4-10.4); Monocytes # 0.4 10^3/uL (0.2-0.9); Monocytes % 28.2 %; Nucleated Red Blood Cells % 0 %; Red Blood Count 2.24 10^6/uL (4.1-5.3); Red Cell Distribution Width 14.6 % (12.1-15.1); White Blood Count 1.4 10^3/uL (4.0-10.0)
[2020-02-16 10:09] LABS: Alanine Aminotransferase 20 U/L (0-41); Albumin Level 3.3 g/dL (3.5-5.2); Alkaline Phosphatase 69 IU/L (40-130); Anion Gap 12.6 (5-19); Aspartate Amino Transferase 13 U/L (0-40); Blood Urea Nitrogen 19 mg/dL (6-20); Calcium 8.4 mg/dL (8.5-10.5); Carbon Dioxide 30 mmol/L (22-29); Chloride 93 mmol/L (98-107); Globulin 2.6 g/dL (1.3-4.6); Glomerular Filtration Rate 69.5 mL/min (90-130); Glucose 100 mg/dL (65-115); Osmolality Calculated 276 mOsm/kg (285-295); Potassium 3.6 mmol/L (3.5-5.1); Sodium 132 mmol/L (136-145); Total Bilirubin 0.8 mg/dL (0.15-1.2); Total Protein 5.9 g/dL (6.6-8.7)
[2020-02-16 10:15] LABS: Neutrophils % 35.9 %; Slide Review Slide Review Perform
[2020-02-16 10:16] LABS: Platelet Count 62 10^3/cmm (130-400)
[2020-02-16 10:17] LABS: Hematocrit 19.3 % (42.0-52.0); Neutrophils # 0.49 10^3/uL (1.8-7.7)
[2020-02-16] MEDS: sodium chloride 0.9% (100 ml) 100 ML (11:19)
--- NOTE | 2020-02-16 12:54 | PC.NURSE ---
BLOOD BAND WRISTBAND NOT ABLE TO SCAN, VERIFIED WITH SECOND NURSE AND LAB THAT OVERRIDE WAS ACCEPTABLE DUE TO COMPUTER GLITCH ON LAB SIDE OF A SPACE BEING ENTERED IN FOR BLOOD BAND WRISTBAND. 2ND NURSE VERIFIED. (WASFL). BLOOD THEN STARTED.
--- NOTE | 2020-02-16 19:18 | PC.NURSE ---
Received report from CINDY Matute. Patient resting in bed watching tv. Patient reports feeling much better this evening than when he arrived to the hospital. Patient has peg tube with own supplies for feeding and medication administration. Patient denies pain or needs at this time. No distress observed.
[2020-02-16] MEDS: gabapentin 300 mg Capsule 600 MG PO (21:03)
[2020-02-17] VITALS (7 sets, daily range): BP systolic 87–112; BP diastolic 56–71; PULSE 85–103; RESP 12–16; TEMP 36.6–37.9; O2SAT 94–97
[2020-02-17 04:20] LABS: Basophils % 0.8 %; Hematocrit 24.3 % (42.0-52.0); Hemoglobin 8.2 g/dL (11.7-16.6); Lymphocytes # 0.4 10^3/uL (0.8-4.8); Lymphocytes % 34.4 %; Mean Corpuscular HGB Conc 33.7 g/dL (30.0-36.0); Mean Corpuscular Hemoglobin 29.6 pg (28.0-34.0); Mean Corpuscular Volume 87.7 fL (80-94); Mean Platelet Volume 8.8 fL (7.4-10.4); Monocytes # 0.3 10^3/uL (0.2-0.9); Monocytes % 24.2 %; Neutrophils % 40.6 %; Nucleated Red Blood Cells % 0 %; Platelet Count 66 10^3/cmm (130-400); Red Blood Count 2.77 10^6/uL (4.1-5.3); Red Cell Distribution Width 14.2 % (12.1-15.1); White Blood Count 1.3 10^3/uL (4.0-10.0)
[2020-02-17 04:48] LABS: Alanine Aminotransferase 23 U/L (0-41); Albumin Level 3.5 g/dL (3.5-5.2); Alkaline Phosphatase 78 IU/L (40-130); Anion Gap 12.4 (5-19); Aspartate Amino Transferase 18 U/L (0-40); Blood Urea Nitrogen 17 mg/dL (6-20); Calcium 8.3 mg/dL (8.5-10.5); Carbon Dioxide 32 mmol/L (22-29); Chloride 91 mmol/L (98-107); Globulin 2.5 g/dL (1.3-4.6); Glomerular Filtration Rate 69.5 mL/min (90-130); Glucose 147 mg/dL (65-115); Magnesium 1.5 mg/dL (1.7-2.3); Osmolality Calculated 278 mOsm/kg (285-295); Potassium 3.4 mmol/L (3.5-5.1); Sodium 132 mmol/L (136-145); Total Bilirubin 0.8 mg/dL (0.15-1.2)
[2020-02-17 04:57] LABS: Neutrophils # 0.52 10^3/uL (1.8-7.7)
[2020-02-17] MEDS: gabapentin 300 mg Capsule PEG-TUBE ×2 (05:26→12:37)
[2020-02-17] MEDS: HYDROcodone-acetaminophen 7.5-325 mg Tablet 1 TAB PEG-TUBE ×5 (05:43→23:03)
[2020-02-17] MEDS: magnesium sulfate premix 2 GM/50 ML PIGGYBACK IV (08:01)
[2020-02-17] MEDS: lactated ringers 1,000 ML 75 ML IV ×2 (09:42→23:08)
[2020-02-17] MEDS: famotidine 20 mg Tablet PEG-TUBE ×2 (09:42→17:02)
[2020-02-17] MEDS: cefepime 1,000 MG in sodium chloride 0.9% (plus) 50 ML 100 MG IV ×2 (12:36→23:04)
--- NOTE | 2020-02-17 13:53 | P.PN_ITS ---
Subjective Subjective: Interval history: Patient reports further improving. Denies shortness of breath or chest pain. Reports that his saliva is quite thick and he continues to have some discomfort in his neck. Patient reports that Mucinex previously worked well. Vitals overall improved and patient currently afebrile for the last 2 days. Neutropenia and thrombocytopenia appears to be further improving. Hemoglobin responded well to 1 unit of transfusion and is at 8.2. Medications: Reviewed: Yes Vitals/I&O/Wt Last Vital Signs Temp 98.2 F 02/17/20 10:40 Pulse 85 02/17/20 10:40 Resp 16 02/17/20 10:40 BP 105/71 02/17/20 10:40 Pulse Ox 95 02/17/20 10:40 02/16/20 02/17/20 02/17/20 22:59 06:59 14:59 Intake Total 1410 / 1542.517 300 / 3634.555 4807.5 / 1037.5 Output Total 875 / 1150 825 / 1975 300 / 300 Balance 535 / 392.517 -525 / -132.483 737.5 / 737.5 Physical Exam Const: COMMON NORMALS: no acute distress and patient oriented x3 Resp: COMMON NORMALS: normal respiratory effort and clear to auscultation bilaterally AUSCULTATION: clear to auscultation bilaterally Cardio: COMMON NORMALS: regular rate, regular rhythm and S2 normal heart sound present RATE: regular rate RHYTHM: regular rhythm HEART SOUNDS: S2 normal heart sound present OTHER: No lower extremity edema GI: COMMON NORMALS: Normal to inspection, nondistended, normoactive bowel sounds present, Soft to palpation and non-tender PALPATION: Yes Soft to palpation OTHER: PEG tube insertion site is clean Neuro: COMMON NORMALS: patient oriented x3 and no focal motor deficits Skin: OTHER: Mostly right side of the neck has erythema and post radiation changes Data : 02/17/20 03:08 02/17/20 03:08 Micro: Microbiology 02/15/20 13:30 Gram Stain - Final Sputum - Expectorated Sputum Sputum Culture - Preliminary A&P Assessment and plan (1) Neutropenia: With neutropenic fever. Post chemotherapy last week Monday. Status: Acute (2) Sepsis: IV antibiotics consisting of cefepime and vancomycin. Continued hydration Chest abdomen and pelvis CT demonstrated no infiltrate in the lungs. Rapid Covid negative Status: Acute (3) Pancytopenia: Most recent chemotherapy and radiation patient reports being last week Karan 1 unit packed red blood cells transfused for hemoglobin of 5.8. Repeat CBC tomorrow. Status: Acute (4) AMOS (acute kidney injury): Resolved. 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 Status: Acute Additional A&P Information Sepsis with neutropenic fever. Acute on chronic normocytic anemia Bone marrow suppression from the chemotherapeutic agent would explain pancytopenia Patient is stating blood from his right tonsillar mass but it is not profuse to the point which is hemoglobin from 9-6 in 2 weeks AMOS, prerenal. Postrenal component cannot be ruled out at this point Hypomagnesemia, present on admission Hypokalemia. Full code PEG tube feeding DVT prophylaxis SCDs, avoid anticoagulation in setting of anemia PLAN: We will change LR to 50 mL/h and continue tube feeds. Replete potassium. Add Mucinex. Continue IV antibiotics for now as patient is still neutropenic Attestations Medical Necessity Statement*: Patient with neutropenic fever requires close inpatient monitoring and treatment until deemed safe for discharge. 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
[2020-02-17] MEDS: potassium chloride oral liq 20 mEq/15 mL UDC 40 MEQ PO (14:23)
[2020-02-17] MEDS: guaiFENesin 600 mg Tablet PO (17:02)
--- NOTE | 2020-02-17 19:01 | PC.NURSE ---
Received report from CINDY Matute. Patient resting in bed watching tv. C/O pain 09/10 to throat. Patient given medication as ordered for pain. Patient express thanks. Assessment completed as documented. Patient denies needs or other discomforts at this time. No distress observed.
[2020-02-17] MEDS: escitalopram 10 mg Tablet PEG-TUBE (20:57)
[2020-02-17] MEDS: gabapentin 300 mg Capsule 600 MG PO (20:57)
[2020-02-18] VITALS (7 sets, daily range): BP systolic 106–119; BP diastolic 66–74; PULSE 78–97; RESP 12–19; TEMP 36.6–37.7; O2SAT 93–96
[2020-02-18] MEDS: HYDROcodone-acetaminophen 7.5-325 mg Tablet 1 TAB PEG-TUBE ×6 (03:10→23:52)
[2020-02-18 05:39] LABS: Basophils % 1.2 %; Eosinophils % 0.6 %; Hematocrit 23.1 % (42.0-52.0); Hemoglobin 7.9 g/dL (11.7-16.6); Lymphocytes # 0.4 10^3/uL (0.8-4.8); Lymphocytes % 22.2 %; Mean Corpuscular HGB Conc 34.2 g/dL (30.0-36.0); Mean Corpuscular Hemoglobin 30.2 pg (28.0-34.0); Mean Corpuscular Volume 88.2 fL (80-94); Monocytes # 0.4 10^3/uL (0.2-0.9); Neutrophils % 53.8 %; Nucleated Red Blood Cells % 0 %; Platelet Count 56 10^3/cmm (130-400); Red Blood Count 2.62 10^6/uL (4.1-5.3); Red Cell Distribution Width 14.2 % (12.1-15.1); White Blood Count 1.7 10^3/uL (4.0-10.0)
[2020-02-18] MEDS: gabapentin 300 mg Capsule PEG-TUBE ×2 (05:43→11:35)
[2020-02-18 06:08] LABS: Alanine Aminotransferase 22 U/L (0-41); Albumin Level 3.2 g/dL (3.5-5.2); Alkaline Phosphatase 70 IU/L (40-130); Anion Gap 12.8 (5-19); Aspartate Amino Transferase 13 U/L (0-40); Blood Urea Nitrogen 14 mg/dL (6-20); Calcium 8.2 mg/dL (8.5-10.5); Carbon Dioxide 31 mmol/L (22-29); Chloride 93 mmol/L (98-107); Globulin 2.6 g/dL (1.3-4.6); Glomerular Filtration Rate 87.6 mL/min (90-130); Glucose 97 mg/dL (65-115); Magnesium 1.5 mg/dL (1.7-2.3); Osmolality Calculated 276 mOsm/kg (285-295); Potassium 3.8 mmol/L (3.5-5.1); Sodium 133 mmol/L (136-145); Total Bilirubin 0.7 mg/dL (0.15-1.2); Total Protein 5.8 g/dL (6.6-8.7)
[2020-02-18 07:28] LABS: Slide Review Slide Review Perform
--- NOTE | 2020-02-18 08:30 | PC.NURSE ---
Pt is awake, alert, oriented, reports of mild chills T-98.7 orally upon check Pt has a PEG tube with 2 catheter ports. 1 port for medication administration, 2nd port for feeding. Has chronic pain on his throat w/ pain mgt on board as ordered Q4h as needed. Pt has his own osmolite 1.2 miriam per 237 ml for his nutritional feeding at bedside from home. Pt has his materials for PEG tube at bedside. Pt denies any assistance for wound care. However assisted pt on med administration such as crushing pills.
[2020-02-18] MEDS: famotidine 20 mg Tablet PEG-TUBE ×2 (09:06→18:07)
[2020-02-18] MEDS: guaiFENesin 600 mg Tablet PO (09:06)
[2020-02-18] MEDS: magnesium sulfate premix 2 GM/50 ML PIGGYBACK IV (09:10)
[2020-02-18] MEDS: cefepime 1,000 MG in sodium chloride 0.9% (plus) 50 ML 100 MG IV ×2 (11:34→23:52)
--- NOTE | 2020-02-18 11:47 | PC.NURSE ---
Pt stated he had 2 bottles of 237 ml Osmolite 1.2 miriam for his peg tube feeding
--- NOTE | 2020-02-18 12:09 | PM.PN ---
Subjective Subjective: Interval history: Patient reports further improving. Denies shortness of breath or chest pain. Reports that after initiation of Mucinex his speech and discomfort in his neck improved. He speaks a little bit more clearly. His last bowel movement was day before yesterday. Denies any problems with urination. His white blood cell count improved but patient still remains neutropenic. Continues to have low-grade fever 100.2 yesterday afternoon and 99.8 this morning. Platelets and hemoglobin slightly down. Medications: Reviewed: Yes Vitals/I&O/Wt Last Vital Signs Temp 99.8 F H 02/18/20 10:30 Pulse 78 02/18/20 10:30 Resp 12 02/18/20 10:30 BP 119/72 02/18/20 10:30 Pulse Ox 95 02/18/20 10:30 02/17/20 02/18/20 02/18/20 22:59 06:59 14:59 Intake Total 720 / 1807.5 2170 / 3977.5 637 / 637 Output Total 1200 / 1500 600 / 2100 600 / 600 Balance -480 / 307.5 1570 / 1877.5 37 / 37 Physical Exam Const: COMMON NORMALS: no acute distress and patient oriented x3 Resp: COMMON NORMALS: normal respiratory effort and clear to auscultation bilaterally AUSCULTATION: clear to auscultation bilaterally Cardio: COMMON NORMALS: regular rate, regular rhythm and S2 normal heart sound present RATE: regular rate RHYTHM: regular rhythm HEART SOUNDS: S2 normal heart sound present OTHER: No lower extremity edema GI: COMMON NORMALS: Normal to inspection, nondistended, normoactive bowel sounds present, Soft to palpation and non-tender PALPATION: Yes Soft to palpation OTHER: PEG tube insertion site is clean Neuro: COMMON NORMALS: patient oriented x3 and no focal motor deficits Skin: OTHER: Mostly right side of the neck has erythema and post radiation changes Data : 02/18/20 05:28 02/18/20 05:28 Micro: Microbiology 02/15/20 13:30 Gram Stain - Final Sputum - Expectorated Sputum Sputum Culture - Final A&P Assessment and plan (1) Neutropenia: With neutropenic fever. Post chemotherapy last week Monday. Status: Acute (2) Sepsis: IV antibiotics consisting of cefepime and vancomycin. Continued hydration Chest abdomen and pelvis CT demonstrated no infiltrate in the lungs. Rapid Covid negative Status: Acute (3) Pancytopenia: Most recent chemotherapy and radiation patient reports being last week Karan 1 unit packed red blood cells transfused for hemoglobin of 5.8. Repeat CBC tomorrow. Status: Acute (4) AMOS (acute kidney injury): Resolved. 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 Status: Acute Additional A&P Information Sepsis with neutropenic fever. Acute on chronic normocytic anemia Bone marrow suppression from the chemotherapeutic agent would explain pancytopenia Patient is stating blood from his right tonsillar mass but it is not profuse to the point which is hemoglobin from 9-6 in 2 weeks AMOS, prerenal. Postrenal component cannot be ruled out at this point Hypomagnesemia, present on admission Hypokalemia. Full code PEG tube feeding DVT prophylaxis SCDs, avoid anticoagulation in setting of anemia PLAN: Continue IV fluids and antibiotics for now. I think in couple days patient's CBC will improve and neutropenia will resolve. Magnesium again 1.5 this morning. Will give 2 g IV magnesium sulfate. Monitor CBC. Attestations Medical Necessity Statement*: Patient with neutropenic fever requires close inpatient monitoring and treatment until deemed safe for discharge. 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
[2020-02-18] MEDS: lactated ringers 1,000 ML 75 ML IV (12:32)
[2020-02-18] MEDS: guaiFENesin 100 mg/5 mL UDC 10 mL 200 MG PO (16:10)
--- NOTE | 2020-02-18 19:12 | PC.NURSE ---
Received report from CINDY Minor. Patient resting in bed with eyes closed. No distress observed. Patient opens eyes spontaneously to verbal stimuli. Performed assessment as documented. Informed patient that we would keep his pain medications on a four hour schedule as close as possible for pain control to his throat. Patient currently c/o 08/10 to throat. Next medication can be given at 1999. Patient verbalized complete understanding.
[2020-02-18] MEDS: escitalopram 10 mg Tablet PEG-TUBE (20:02)
[2020-02-18] MEDS: gabapentin 300 mg Capsule 600 MG PO (20:03)
[2020-02-19 01:02] LABS: Vancomycin Trough 10.9 ug/mL (10-15)
[2020-02-19] MEDS: lactated ringers 1,000 ML 75 ML IV (01:34)
[2020-02-19] MEDS: HYDROcodone-acetaminophen 7.5-325 mg Tablet 1 TAB PEG-TUBE ×3 (03:55→12:35)
[2020-02-19] MEDS: gabapentin 300 mg Capsule PEG-TUBE ×2 (03:55→12:35)
[2020-02-19 03:58] VITALS: BP 115/70; PULSE 90; RESP 16; TEMP 36.9; O2SAT 93
--- NOTE | 2020-02-19 03:59 | PC.NURSE ---
Patient requested pain medication on schedule to help control throat cancer pain. Attempting to keep as close to every 4 hours as convenient for patient. Patient also requested this am dose of gabapentin given early for continued rest.
[2020-02-19 04:59] LABS: Basophils % 0.5 %; Eosinophils % 0.5 %; Hematocrit 21.1 % (42.0-52.0); Hemoglobin 7.6 g/dL (11.7-16.6); Lymphocytes # 0.6 10^3/uL (0.8-4.8); Lymphocytes % 27.1 %; Mean Corpuscular Hemoglobin 33.2 pg (28.0-34.0); Mean Corpuscular Volume 92.1 fL (80-94); Mean Platelet Volume 8.7 fL (7.4-10.4); Monocytes # 0.4 10^3/uL (0.2-0.9); Neutrophils # 1.18 10^3/uL (1.8-7.7); Nucleated Red Blood Cells % 0 %; Platelet Count 70 10^3/cmm (130-400); Red Blood Count 2.29 10^6/uL (4.1-5.3); Red Cell Distribution Width 14.1 % (12.1-15.1); White Blood Count 2.2 10^3/uL (4.0-10.0)
[2020-02-19 05:25] LABS: Alanine Aminotransferase 20 U/L (0-41); Albumin Level 3.1 g/dL (3.5-5.2); Alkaline Phosphatase 70 IU/L (40-130); Anion Gap 11.7 (5-19); Aspartate Amino Transferase 11 U/L (0-40); Blood Urea Nitrogen 13 mg/dL (6-20); Calcium 8.4 mg/dL (8.5-10.5); Carbon Dioxide 31 mmol/L (22-29); Chloride 93 mmol/L (98-107); Globulin 2.6 g/dL (1.3-4.6); Glomerular Filtration Rate 87.6 mL/min (90-130); Glucose 100 mg/dL (65-115); Magnesium 1.6 mg/dL (1.7-2.3); Osmolality Calculated 274 mOsm/kg (285-295); Potassium 3.7 mmol/L (3.5-5.1); Sodium 132 mmol/L (136-145); Total Bilirubin 0.6 mg/dL (0.15-1.2); Total Protein 5.7 g/dL (6.6-8.7)
[2020-02-19 05:42] LABS: Slide Review Slide Review Perform
[2020-02-19 07:23] VITALS: BP 117/74; PULSE 84; RESP 17; TEMP 36.4; O2SAT 93
[2020-02-19] MEDS: famotidine 20 mg Tablet PEG-TUBE (08:26)
[2020-02-19] MEDS: magnesium sulfate premix 2 GM/50 ML PIGGYBACK IV (08:27)
[2020-02-19 10:27] VITALS: BP 118/76; PULSE 87; RESP 17; TEMP 36.8; O2SAT 96
--- NOTE | 2020-02-19 11:19 | P.DS_ITS ---
Discharge Providers Date of Admission: 02/13/20 21:40 Date of Discharge: February 19, 2020 Attending Provider at Admission: David Deng MD Attending Provider at Discharge: Gianfranco Sparks MD Diagnoses at Discharge Discharge Diagnosis (1) Neutropenia: Status: Acute Permanent problem details: Resolved (2) Sepsis: Status: Acute Permanent problem details: Resolved (3) Pancytopenia: Status: Acute (4) AMOS (acute kidney injury): Status: Acute Permanent problem details: Resolved. Prerenal. 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 He was diagnosed with neutropenic fever and supported with cefepime and vancomycin. He did not have any evidence of active infection. His fever gradually improved and neutropenia recovered. completely ruled out He received 1 unit of PRBC transfusion. His hemoglobin appears to be stable around seven and with bone marrow recovery I think it will gradually improve. Platelets also show gradual improvement. I have discussed case with Dr. Chance who will see patient early next week with lab work to make sure if further improves. I will discharge patient on Augmentin for 5 days as at this point I think aspiration pneumonia/pneumonitis would be the greatest risk. Patient reports that with Mucinex he is expectoration is much improved and he overall feels great and strong enough to be dismissed home. This morning patient denies shortness of breath or chest pain. Denies abdominal pain. Tolerates tube feeds well. He is saturating in the mid 90s on room air. He ambulates in his room without difficulty. He is scheduled to go back to [facility] in March for posttreatment PET scan Physical Exam Const: COMMON NORMALS: no acute distress and patient oriented x3 Resp: COMMON NORMALS: normal respiratory effort and clear to auscultation bilaterally AUSCULTATION: clear to auscultation bilaterally Cardio: COMMON NORMALS: regular rate, regular rhythm and S2 normal heart sound present RATE: regular rate RHYTHM: regular rhythm HEART SOUNDS: S2 normal heart sound present OTHER: No lower extremity edema GI: COMMON NORMALS: Normal to inspection, nondistended, normoactive bowel sounds present, Soft to palpation and non-tender PALPATION: Yes Soft to palpation OTHER: PEG tube insertion site is clean. Neuro: COMMON NORMALS: patient oriented x3 and no focal motor deficits Discharge Data Data Completed and Pending: Completed Studies During Hospitalization Category Date Time Status CT chest abd pel wo con Stat Cat Scan 02/14/20 01:13 Completed Pending at discharge Category Date Time Status Urine Culture Sta t Lab 02/13/20 05:45 Results Labs from last 24 hours 02/19/20 02/19/20 02/19/20 04:10 04:10 00:25 WBC 2.2 L RBC 2.29 L Hgb 7.6 L Hct 21.1 L MCV 92.1 MCH 33.2 MCHC 36.0 D RDW 14.1 Plt Count 70 L MPV 8.7 Neut % (Auto) 54.0 Lymph % (Auto) 27.1 [place] % (Auto) 17.0 Eos % (Auto) 0.5 Baso % (Auto) 0.5 Neut # (Auto) 1.18 L Lymph # (Auto) 0.6 L [place] # (Auto) 0.4 Eos # (Auto) 0.0 Baso # (Auto) 0.0 Nucleated RBC % (a uto) 0 Nucleated RBCs # 0.0 Sodium 132 L Potassium 3.7 Chloride 93 L Carbon Dioxide 31 H Anion Gap 11.7 BUN 13 Creatinine 0.9 GFR Calculation 87.6 L Glucose 100 Calculated Osmolal ity 274 L Calcium 8.4 L Magnesium 1.6 L Total Bilirubin 0.6 AST 11 ALT 20 Alkaline Phosphata se 70 Total Protein 5.7 L Albumin 3.1 L Globulin 2.6 Vancomycin Trough 10.9 Vitals: Last Vital Signs Temp 98.3 F 02/19/20 10:27 Pulse 87 02/19/20 10:27 Resp 17 02/19/20 10:27 BP 118/76 02/19/20 10:27 Pulse Ox 96 02/19/20 10:27 Discharge Plan Discharge Patient Disposition: Home Condition: Stable Prescriptions: New guaifenesin 100 mg/5 mL Liquid 200 mg PO Q8H PRN (Reason: Cough And Congestion) Qty: 30 RF: 0 Augmentin 875-125 mg tablet 1 tab PO BID Qty: 10 RF: 0 magnesium oxide 240 mg magnesium powder in packet 250 mg feeding tube DAILY Qty: 80 RF: 0 Continued silver sulfadiazine 1 % Cream See Rx Instructions .ROUTE .COMPLEX RF: 0 ibuprofen 800 mg Tablet 800 mg PO TID RF: 0 ondansetron HCl [Zofran] 8 mg Tablet See Rx Instructions .ROUTE .COMPLEX RF: 0 prochlorperazine maleate 10 mg Tablet See Rx Instructions .ROUTE .COMPLEX RF: 0 triamcinolone acetonide 0.1 % cream See Rx Instructions .ROUTE .COMPLEX RF: 0 hydrocodone-acetaminophen [[place]] 7.5-325 mg Tablet See Rx Instructions .ROUTE .COMPLEX RF: 0 gabapentin 300 mg Capsule See Rx Instructions .ROUTE .COMPLEX RF: 0 Lidocaine Viscous 2 % Solution See Rx Instructions .ROUTE .COMPLEX RF: 0 omeprazole 20 mg Capsule,Delayed Release(Dr/Ec) See Rx Instructions .ROUTE .COMPLEX RF: 0 polyethylene glycol 3350 [Miralax] 17 gram/dose Powder 17 g PO DAILY RF: 0 Dilaudid 1 mg/mL Liquid See Rx Instructions .ROUTE .COMPLEX RF: 0 escitalopram oxalate [Lexapro] 10 mg Tablet See Rx Instructions .ROUTE .COMPLEX RF: 0 Osmolite 1.5 Karthik 0.06 gram-1.5 kcal/mL Liquid See Rx Instructions .ROUTE .COMPLEX RF: 0 Restoril See Rx Instructions .ROUTE .COMPLEX RF: 0 Stomatitis Cocktail See Rx Instructions .ROUTE .COMPLEX RF: 0 guaifenesin See Rx Instructions .ROUTE .COMPLEX RF: 0 Discharge Orders: Discharge Order (Routine); Ordered 02/19/20 Ordered By: Gianfranco Sparks Other Ambulatory Orders: Complete Blood Count w/Auto (Routine) Timeframe: 20200224 Location: Determined by Patient Ordered By: Gianfranco Sparks Comprehensive Metabolic Panel (Routine) Timeframe: 20200224 Facility: [facility] - Location: Lab - Main Lab Ordered By: Gianfranco Sparks Referrals: Reji Chance MD [Hospitalist] - 4-7 days Discharge Diet: Usual diet Discharge Activity: Increase activity as tolerated Patient Instructions: Guaifenesin (By mouth), Amoxicillin/Clavulanate Potassium (By mouth), Magnesium Oxide (By mouth), Acute Kidney Injury (DC), Sepsis (DC), Neutropenia (DC), Anemia (DC) Activity Restrictions/Additional Instructions: Please call your doctor or present to emergency department if your condition worsens or you develop diarrhea, lightheadedness, fatigue or see blood in your stool or black stool. Discharge Attestations Time Spent in Discharge Care*: greater than 30 min Quality Metrics Clinical Quality Measures During this hospital stay, did patient experience: None Coding Level of Care Code Acute Charter Representative for g Fwd Exam Detailed Diagnoses Neutropenia D70.9 Sepsis A41.9 Pancytopenia D61.818 AMOS (acute kidney injury) N17.9 Right tonsillar squamous cell carcinoma C09.9 Hypomagnesemia E83.42 Dehydration with hyponatremia E86.0; E87.1
[2020-02-19 11:30] VITALS: BP 118/76; PULSE 87; RESP 17; TEMP 36.8; O2SAT 96
[2020-02-19] MEDS: cefepime 1,000 MG in sodium chloride 0.9% (plus) 50 ML 100 MG IV (12:35)
== END 2020-02-19 13:45 | disposition home or self-care (01) | DRG 872 ==
LOC: ER 21:45 → CSU 23:55
PROVIDERS: Internal Medicine; Admitting Provider Internal Medicine; Emergency Provider Emergency Medicine; Visit Provider Internal Medicine
DX: A41.9 Sepsis, unspecified organism (principal); D61.818 Other pancytopenia; N17.9 Acute kidney failure, unspecified; C09.9 Malignant neoplasm of tonsil, unspecified; Z79.899 Other long term (current) drug therapy; Z87.891 Personal history of nicotine dependence; D70.1 Agranulocytosis secondary to cancer chemotherapy; T45.1X5A Adverse effect of antineoplastic and immunosuppressive drugs, initial encounter; D64.9 Anemia, unspecified; Z93.1 Gastrostomy status; E83.42 Hypomagnesemia; E87.6 Hypokalemia; E86.0 Dehydration
CPT/HCPCS: 12345; 36415; 36430; 71250; 74176; 80053; 80202; 81003; 82607; 82728; 83540; 83550; 83605; 83615; 83735; 84100; 84145; 85025; 86850; 86900; 86920; 87040; 87070; 87086; 87205; 87426; 96375; 99283; J0692; J2405; J3370; J3475; J7030; J7050; P9016

== ENCOUNTER 2020-03-10 02:36 | Emergency (ER) | payer OTHER, SELFPAY ==
[2020-03-10 02:37] VITALS: BP 106/71; PULSE 93; RESP 16; TEMP 36.8; O2SAT 97; BMI 22.4
--- NOTE | 2020-03-10 02:50 | XR_ITS ---
WS: [id number] XR chest 1V portable [id number] REASON FOR EXAM: Dyspnea FINDINGS: The heart and mediastinum are within normal limits. No active pulmonary parenchymal pleural disease. The bony thorax is intact. XR/XR chest 1V portable [id number] IMPRESSION: No acute chest abnormality.
--- NOTE | 2020-03-10 02:52 | W.ED.SOB ---
HPI - SOB/Dyspnea General: Chief Complaint: Shortness of Breath/Dyspnea Stated Complaint: fever, cough, dry heaving Time Seen by Provider: 03/10/20 02:44 Source: patient Mode of arrival: ambulatory Limitations: no limitations History of Present Illness: HPI Narrative: Antelmo is a very nice 54-year-old male who comes in complaining of cough. He states he is coughed up a small amount of light cabrera fluid. Patient is concerned because he currently does tube feeds and is concerned he may have aspirated. Patient denies any shortness of breath at rest. Denies fever, chills, chest pain or other complaints. Patiently has a history of tonsillar squamous cell cancer that is believed to be in remission. He received surgery, chemotherapy and multiple rounds of radiation. His last PET scan was unremarkable. Patient is just concerned as he is coughing up this cabrera fluid that he could have aspirated. He otherwise denies any complaints or concerns. 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 He has rhonchi occasional on exam although not consistently. He is not hypoxic and he is not in respiratory distress. Because of his history though I will treat him more aggressively with antibiotics. He understands return here for symptoms change or worsen but at this time he is feeling better and would like to be discharged. Lab Data: Attestation: I reviewed the patient's lab results. Labs: Lab Results 03/10/20 03/10/20 03/10/20 Range/Units 03:22 03:22 03:22 WBC 6.4 (4.0-10.0) 10^3/ uL RBC 2.47 L (4.1-5.3) 10^6/u L Hgb 8.0 L (11.7-16.6) g/dL Hct 22.8 L (42.0-52.0) % MCV 92.3 (80-94) fL MCH 32.4 (28.0-34.0) pg MCHC 35.1 (30.0-36.0) g/dL RDW 15.9 H (12.1-15.1) % Plt Count 198 (130-400) 10^3/c mm MPV 9.3 (7.4-10.4) fL Neut % (Auto) 70.0 % Lymph % (Auto) 15.6 % [place] % (Auto) 11.7 % Eos % (Auto) 0.2 % Baso % (Auto) 0.6 % Neut # (Auto) 4.48 (1.8-7.7) 10^3/u L Lymph # (Auto) 1.0 (0.8-4.8) 10^3/u L [place] # (Auto) 0.8 (0.2-0.9) 10^3/u L Eos # (Auto) 0.0 (0.0-0.8) 10^3/u L Baso # (Auto) 0.0 (0.0-0.1) 10^3/u L Nucleated RBC % (a uto) 0 % Nucleated RBCs # 0.0 /100WBC Sodium 134 L (136-145) mmol/L Potassium 4.3 (3.5-5.1) mmol/L Chloride 94 L (98-107) mmol/L Carbon Dioxide 28 (22-29) mmol/L Anion Gap 16.3 (5-19) BUN 17 (6-20) mg/dL Creatinine 1.1 (0.7-1.2) mg/dL GFR Calculation 69.5 L (90-130) mL/min Glucose 106 (65-115) mg/dL Calculated Osmolal ity 280 L (285-295) mOsm/k g Lactic Acid 1.2 (0.5-2.2) mmol/L Calcium 9.6 (8.5-10.5) mg/dL Total Bilirubin 0.5 (0.15-1.2) mg/dL AST 12 (0-40) U/L ALT 8 (0-41) U/L Alkaline Phosphata se 67 (40-130) IU/L Total Protein 6.9 (6.6-8.7) g/dL Albumin 4.1 (3.5-5.2) g/dL Globulin 2.8 (1.3-4.6) g/dL Influenza Type A A g (Negative) Influenza Type B A g (Negative) SARS-CoV-2 Ag (Rap id) (Negative) 03/10/20 03/10/20 Range/Units 03:32 03:32 WBC (4.0-10.0) 10^3/ uL RBC (4.1-5.3) 10^6/u L Hgb (11.7-16.6) g/dL Hct (42.0-52.0) % MCV (80-94) fL MCH (28.0-34.0) pg MCHC (30.0-36.0) g/dL RDW (12.1-15.1) % Plt Count (130-400) 10^3/c mm MPV (7.4-10.4) fL Neut % (Auto) % Lymph % (Auto) % [place] % (Auto) % Eos % (Auto) % Baso % (Auto) % Neut # (Auto) (1.8-7.7) 10^3/u L Lymph # (Auto) (0.8-4.8) 10^3/u L [place] # (Auto) (0.2-0.9) 10^3/u L Eos # (Auto) (0.0-0.8) 10^3/u L Baso # (Auto) (0.0-0.1) 10^3/u L Nucleated RBC % (a uto) % Nucleated RBCs # /100WBC Sodium (136-145) mmol/L Potassium (3.5-5.1) mmol/L Chloride (98-107) mmol/L Carbon Dioxide (22-29) mmol/L Anion Gap (5-19) BUN (6-20) mg/dL Creatinine (0.7-1.2) mg/dL GFR Calculation (90-130) mL/min Glucose (65-115) mg/dL Calculated Osmolal ity (285-295) mOsm/k g Lactic Acid (0.5-2.2) mmol/L Calcium (8.5-10.5) mg/dL Total Bilirubin (0.15-1.2) mg/dL AST (0-40) U/L ALT (0-41) U/L Alkaline Phosphata se (40-130) IU/L Total Protein (6.6-8.7) g/dL Albumin (3.5-5.2) g/dL Globulin (1.3-4.6) g/dL Influenza Type A A g Negative (Negative) Influenza Type B A g Negative (Negative) SARS-CoV-2 Ag (Rap id) Negative (Negative) Imaging Data^: CXR: Attestation: I personally reviewed and interpreted this imaging study as follows: My impression: No acute cardiopulmonary findings. Discharge Plan Discharge Patient Disposition: Home Clinical Impression: Pneumonia Qualifiers: Pneumonia type: due to unspecified organism Laterality: unspecified laterality Lung location: unspecified part of lung Qualified Code(s): J18.9 - Pneumonia, unspecified organism Condition: Stable Prescriptions: New Augmentin 875-125 mg tablet 1 tab PO BID 10 Days Qty: 20 RF: 0 No Action famotidine 20 mg PO BID RF: 0 temazepam 15 mg feeding tube BID RF: 0 silver sulfadiazine 1 % Cream See Rx Instructions .ROUTE .COMPLEX RF: 0 ibuprofen 800 mg Tablet 800 mg PO TID RF: 0 ondansetron HCl [Zofran] 8 mg Tablet See Rx Instructions .ROUTE .COMPLEX RF: 0 prochlorperazine maleate 10 mg Tablet See Rx Instructions .ROUTE .COMPLEX RF: 0 triamcinolone acetonide 0.1 % cream See Rx Instructions .ROUTE .COMPLEX RF: 0 hydrocodone-acetaminophen [[place]] 7.5-325 mg Tablet See Rx Instructions .ROUTE .COMPLEX RF: 0 gabapentin 300 mg Capsule See Rx Instructions .ROUTE .COMPLEX RF: 0 Lidocaine Viscous 2 % Solution See Rx Instructions .ROUTE .COMPLEX RF: 0 omeprazole 20 mg Capsule,Delayed Release(Dr/Ec) See Rx Instructions .ROUTE .COMPLEX RF: 0 polyethylene glycol 3350 [Miralax] 17 gram/dose Powder 17 g PO DAILY RF: 0 Dilaudid 1 mg/mL Liquid See Rx Instructions .ROUTE .COMPLEX RF: 0 escitalopram oxalate [Lexapro] 10 mg Tablet See Rx Instructions .ROUTE .COMPLEX RF: 0 Osmolite 1.5 Karthik 0.06 gram-1.5 kcal/mL Liquid See Rx Instructions .ROUTE .COMPLEX RF: 0 Restoril See Rx Instructions .ROUTE .COMPLEX RF: 0 Stomatitis Cocktail See Rx Instructions .ROUTE .COMPLEX RF: 0 guaifenesin See Rx Instructions .ROUTE .COMPLEX RF: 0 guaifenesin 100 mg/5 mL Liquid 200 mg PO Q8H PRN (Reason: Cough And Congestion) Qty: 30 RF: 0 Augmentin 875-125 mg tablet 1 tab PO BID Qty: 10 RF: 0 magnesium oxide 240 mg magnesium powder in packet 250 mg feeding tube DAILY Qty: 80 RF: 0 Discharge Orders: Discharge ED (Routine); Ordered 03/10/20 Ordered By: Chelita Leslie Referrals: Meron Oliver MD [Physician] - 1-3 days Discharge Diet: Advance as tolerated Discharge Activity: Increase activity as tolerated Patient Instructions: Aspiration Pneumonia (GEN), Pneumonia (ED) Activity Restrictions/Additional Instructions: Please return to the ER immediately for any of the signs or symptoms listed on your discharge instruction sheets, worsening/changing of your symptoms, you are not getting better as quickly as expected, or for ANY other cause or concerns. Your antibiotics as I have prescribed. Return to the ER for worsening cough, shortness of breath, fever, vomiting, or for any other cause for concern. Follow-up with your primary care physician or your oncologist or Dr. Oliver as soon as possible this week for recheck. Coding Level of Care Code ED [employer] Chair for Nesha Lewis
[2020-03-10] MEDS: sodium chloride 0.9% 1,000 ML 100 ML IV (03:25)
[2020-03-10 03:26] VITALS: BP 109/73; PULSE 89; RESP 15; O2SAT 100
[2020-03-10 03:55] LABS: Basophils % 0.6 %; Eosinophils % 0.2 %; Hematocrit 22.8 % (42.0-52.0); Lymphocytes % 15.6 %; Mean Corpuscular HGB Conc 35.1 g/dL (30.0-36.0); Mean Corpuscular Hemoglobin 32.4 pg (28.0-34.0); Mean Corpuscular Volume 92.3 fL (80-94); Mean Platelet Volume 9.3 fL (7.4-10.4); Monocytes # 0.8 10^3/uL (0.2-0.9); Monocytes % 11.7 %; Neutrophils # 4.48 10^3/uL (1.8-7.7); Nucleated Red Blood Cells % 0 %; Platelet Count 198 10^3/cmm (130-400); Red Blood Count 2.47 10^6/uL (4.1-5.3); Red Cell Distribution Width 15.9 % (12.1-15.1); White Blood Count 6.4 10^3/uL (4.0-10.0)
[2020-03-10] MEDS: ondansetron 2 mg/ML SDV 2 mL 4 MG IVP (04:18)
[2020-03-10] MEDS: LORazepam 2 mg/mL INJ 1 mL 0.5 MG IVP (04:19)
[2020-03-10 04:21] VITALS: BP 116/78; PULSE 92; RESP 16; O2SAT 98
[2020-03-10 04:27] LABS: Alanine Aminotransferase 8 U/L (0-41); Albumin Level 4.1 g/dL (3.5-5.2); Alkaline Phosphatase 67 IU/L (40-130); Anion Gap 16.3 (5-19); Aspartate Amino Transferase 12 U/L (0-40); Blood Urea Nitrogen 17 mg/dL (6-20); Calcium 9.6 mg/dL (8.5-10.5); Carbon Dioxide 28 mmol/L (22-29); Chloride 94 mmol/L (98-107); Creatinine Clr Calc Pharmacy 82.0993; Globulin 2.8 g/dL (1.3-4.6); Glomerular Filtration Rate 69.5 mL/min (90-130); Glucose 106 mg/dL (65-115); Osmolality Calculated 280 mOsm/kg (285-295); Potassium 4.3 mmol/L (3.5-5.1); Sodium 134 mmol/L (136-145); Total Bilirubin 0.5 mg/dL (0.15-1.2); Total Protein 6.9 g/dL (6.6-8.7)
[2020-03-10 04:28] LABS: Lactic Sepsis W/Reflex 1.2 mmol/L (0.5-2.2)
[2020-03-10 04:34] LABS: Influenza A by IFA Negative (Negative); Influenza B by IFA Negative (Negative); SARS Covid-2 Antigen Negative (Negative)
[2020-03-10 04:40] VITALS: BP 117/80; O2SAT 96
[2020-03-10] MEDS: piperacillin-tazobactam 3.375 GM in sodium chloride 0.9% (plus) 50 ML IV (05:17)
[2020-03-10 05:18] VITALS: BP 112/64; PULSE 98; RESP 14; O2SAT 97
[2020-03-10 06:10] VITALS: BP 110/75; PULSE 76; RESP 18; O2SAT 96
== END 2020-03-10 06:13 | disposition home or self-care (01) ==
PROVIDERS: Emergency Provider Emergency Medicine
DX: J18.9 Pneumonia, unspecified organism (principal); Z87.891 Personal history of nicotine dependence
CPT/HCPCS: 12345; 71045; 80053; 83605; 85025; 87040; 87426; 87804; 96361; 96365; 96375; 99283; J2060; J2405; J2543; J7030